=== PATIENT | male | born 1985 | race Caucasian/White ===

== ENCOUNTER 2016-06-16 20:23 | Emergency (ER) | payer SELFPAY ==
[~2016-06-16 20:23] MED LIST: IBUPROFEN800 MG PO; VOLTAREN75 MG PO
== END 2016-06-16 20:29 | disposition home or self-care (01) ==
LOC: SED 20:23
DX: R22.1 Localized swelling, mass and lump, neck (principal); F17.200 Nicotine dependence, unspecified, uncomplicated
CPT/HCPCS: 99282